=== PATIENT | male | born 1945 | race Caucasian/White ===

== ENCOUNTER → 2017-11-25 | Day surgery (SDC) | payer OTHER, MEDICARE ==
[~2017-11-25] VITALS: Ht 177.8 cm; Wt 124.7 kg
[~2017-11-25] MED LIST: AMLODIPINE BESY10 M1 PO; ASPIRIN EC81 M1 PO; BASAGLAR K100 UNIT/1 SC; CO Q-10300 MG PO; GLIPIZIDE10 M2 PO; IRON325 M3 PO; KRILL OIL500 MG PO; LISINOPRIL-HCT1 EACH PO; MAGNESIUM400 M1 PO; METFORMIN HCL1000 M1 PO; PRAVACHOL40 M1 PO; PROBIOTIC1 EACH PO; ROBAXIN500 M1 PO; VITAMIN B COMP1 EACH PO; VITAMIN D2000 UNI1 PO
--- NOTE | 2017-11-25 15:29 | Operative Report ---
Operative/Inv Procedure Report Surgery Date: 11/25/17 Name of Procedure: TURBT with laser Pre-Operative Diagnosis: Bladder cancer Post-Operative Diagnosis: Same Estimated Blood Loss: 50ml to 100ml Surgeon/Office Receptionist: Rafael Powell MD Anesthesia: general endotracheal tube Drains: None Specimens: Bladder tumor Condition: Stable Operative Indication: Patient with history of recurrent bladder cancer, had recent cystoscopy in the office revealed a recurrence. We reviewed various alternatives, and he is agreeable undergo repeat biopsy. He was made aware of the complications/ indications thereof including but not inclusive of , heart attack, stroke, hemorrhage requiring transfusion, potential need for further procedures, which could potentially be invasive. He is aware of the likelihood of need for intravesical chemotherapy. Operative/Procedure Note Note: After uneventful induction of general anesthesia patient was placed in the lithotomy position and prepped and draped in a sterile fashion. At this point a 22 Dutch scope was passed per urethra into the bladder thorough inspection of bladder didn't reveal to large anterior dome lesions. The lesions were initially biopsied using a cold cup biopsy, and then standard TURBT with a 26 Dutch resectoscope. This yielded a significant amount of tumor which was sent for analysis. At this point the resectoscope was removed and a laser scope was passed. Under direct vision, at this point the base of the lesions and the surrounding areas were treated with the diode laser, adhering to standard protocol. This achieved excellent hemostasis, no evidence of visible retained tumor. All visible tumor was removed upon resection, and no retained pieces of tumor left in the bladder. Upon completion of this the bladder was emptied the scope was removed patient was awakened and returned to recovery room in good condition.
== END ==
LOC: STS 01:38
DX: C67.9 Malignant neoplasm of bladder, unspecified (principal); Z85.51 Personal history of malignant neoplasm of bladder; E11.9 Type 2 diabetes mellitus without complications; Z79.84 Long term (current) use of oral hypoglycemic drugs; I10 Essential (primary) hypertension; G47.33 Obstructive sleep apnea (adult) (pediatric); E66.9 Obesity, unspecified; Z68.33 Body mass index [BMI] 33.0-33.9, adult
CPT/HCPCS: J0690; J2250